=== PATIENT | female | born 1960 ===

== ENCOUNTER 2018-04-18 10:01 | Outpatient (CLI) | payer BC | END 2018-04-18 10:05 | disposition home or self-care (01) | LOC: SONOGRAMA 10:01 | DX: E04.1 Nontoxic single thyroid nodule (principal) ==

== ENCOUNTER 2021-03-17 12:10 | Outpatient (CLI) | payer OTHER | END 2021-03-17 12:13 | disposition home or self-care (01) | LOC: RAD 12:10 | PROVIDERS: ATTEND Internal Medicine Rheumatology | DX: M06.09 Rheumatoid arthritis without rheumatoid factor, multiple sites (principal); M79.642 Pain in left hand; M79.641 Pain in right hand ==

== ENCOUNTER 2021-06-30 11:45 | Emergency (ER) | payer OTHER ==
[~2021-06-30] VITALS: Ht 160 cm; Wt 61.2 kg
[2021-06-30] MEDS ORDERED: TESTIM5 GM (12:09)
[2021-06-30] MEDS ORDERED: PROMETRIUM200 MG (12:09)
[2021-06-30] MEDS ORDERED: JANUMET 50-1,01 EACH (12:10)
[2021-06-30] MEDS ORDERED: CELEBREX50 MG (12:10)
[2021-06-30] MEDS ORDERED: CRESTOR5 MG (12:11)
== END 2021-06-30 15:32 | disposition home or self-care (01) ==
LOC: ER 11:45
DX: M79.671 Pain in right foot (principal); E11.9 Type 2 diabetes mellitus without complications; Z79.84 Long term (current) use of oral hypoglycemic drugs

== ENCOUNTER 2021-07-07 07:46 | Outpatient (CLI) | payer OTHER ==
[~2021-07-07 07:46] MED LIST: CELEBREX50 MG; CRESTOR5 MG; JANUMET 50-1,01 EACH; PROMETRIUM200 MG; TESTIM5 GM
== END 2021-07-07 09:10 | disposition home or self-care (01) ==
LOC: SONOGRAMA 07:46
PROVIDERS: ATTEND Pathology Anatomic Pathology & Clinical Pathology
DX: E04.1 Nontoxic single thyroid nodule (principal)